=== PATIENT | female | born 2000 | race Caucasian/White ===

== ENCOUNTER 2018-04-21 23:50 | Emergency (ER) | payer OTHER ==
[2018-04-22] MEDS ORDERED: Acetaminophen TAB* 325 MG PO ONE (01:24)
[2018-04-22] MEDS ORDERED: Ketorolac INJ* 30 MG/ML 1 ML VIAL IV ONE (01:24)
[2018-04-22] MEDS ORDERED: NS 0.9% 1000 ML*IV.FLUID IV ONE (01:24)
--- NOTE | 2018-04-22 01:42 | ED ---
Influenza-Like Illness - HPI Summary HPI Summary: This is scribe Haim Garber documenting for attending Dr. Leroy Meadows MD. This patient is a 17 year old F presenting to [facility] accompanied by a female with a chief complaint of pain all over body since this morning at 08:00. The patient rates the pain 8/10 in severity. Patient reports fever and fatigue. Patient denies vomiting or diarrhea. Pt has not gotten the flu shot this year. Pts maximum temperature was 100.6F. PMHX Sinusitis, fibromyalgia, chronic fatigue, chronic LANDRUM. I, Dr. Meadows, personally performed the services described in this documentation as scribed in my presence and it is both accurate and complete. - History of Current Complaint Chief Complaint: EDFluSymptoms Time Seen by Provider: 04/22/18 01:17 Hx Obtained From: Patient Onset/Duration: Sudden Onset, Lasting Days - 1 Severity: Moderate Associated Signs & Symptoms: Fever, T Max - 100.6, Myalgia - Allergy/Home Medications Allergies/Adverse Reactions: Allergies Allergy/AdvReac Type Severity Reaction Status Date / Time amoxicillin Allergy Rash And Verified 04/22/18 00:05 Itching Cephalosporins Allergy Rash And Verified 04/22/18 00:05 Itching sulfa drugs Allergy Rash And Uncoded 04/22/18 00:05 Itching PMH/Surg Hx/FS Hx/Imm Hx Musculoskeletal History: Reports: Hx Fibromyalgia, Other Musculoskeletal History - chronic fatigue Neurological History: Reports: Hx Headaches Infectious Disease History: No Infectious Disease History: Denies: Traveled Outside the [place] in Last 30 Days - Family History Known Family History: Positive: Other - fibromyalgia Review of Systems Positive: Fever, Fatigue Positive: Abdominal Pain. Negative: Vomiting, Diarrhea Positive: Myalgia Positive: Weakness All Other Systems Reviewed And Are Negative: Yes Physical Exam - Summary Physical Exam Summary: GENERAL: Patient is a well-developed and nourished female who is lying comfortable in the stretcher. Patient is not in any acute respiratory distress. HEAD AND FACE: No signs of trauma. No ecchymosis, hematomas or skull depressions. No sinus tenderness. EYES: PERRLA, EOMI x 2, No injected conjunctiva, no nystagmus. EARS: Hearing grossly intact. Ear canals and tympanic membranes are within normal limits. MOUTH: Oropharynx within normal limits. NECK: Supple, trachea is midline, no adenopathy, no JVD, no carotid bruit, no c- spine tenderness, neck with full ROM. CHEST: Symmetric, no tenderness at palpation LUNGS: Clear to auscultation bilaterally. No wheezing or crackles. CVS: Regular rate and rhythm, S1 and S2 present, no murmurs or gallops appreciated. ABDOMEN: Soft, non-tender. No signs of distention. No rebound no guarding, and no masses palpated. Bowel sounds are normal. EXTREMITIES: FROM in all major joints, no edema, no cyanosis or clubbing. NEURO: Alert and oriented x 3. No acute neurological deficits. Speech is normal and follows commands. SKIN: Dry and warm Triage Information Reviewed: Yes Vital Signs On Initial Exam: Initial Vitals Temp Pulse Resp BP Pulse Ox 99.6 F 125 16 111/79 98 04/21/18 23:55 04/21/18 23:55 04/21/18 23:55 04/21/18 23:55 04/21/18 23:55 Vital Signs Reviewed: Yes Diagnostics - Vital Signs Vital Signs Temp Pulse Resp BP Pulse Ox 04/21/18 23:55 99.6 F 125 16 111/79 98 - Laboratory Result Diagrams: 04/22/18 01:29 04/22/18 01:29 Lab Statement: Any lab studies that have been ordered have been reviewed, and results considered in the medical decision making process. - Radiology CXR' Radiology Interpretation Completed By: ED Physician - No acute disease, pending official report Flu Symptom Course/Dx - Course Course Of Treatment: This patient is a 17 year old F presenting to [facility] accompanied by a female with a chief complaint of pain all over body since this morning at 08:00. The patient rates the pain 8/10 in severity. Patient reports fever and fatigue. Patient denies vomiting or diarrhea. Pt has not gotten the flu shot this year. Pts maximum temperature was 100.6F. PMHX Sinusitis, fibromyalgia, chronic fatigue, chronic LANDRUM. CXR reveals, per ED physician, no acute disease. Pending official report. In the ED course the patient was given Acetaminophen and IV fluids. Pt will be discharged with a diagnosis of viral syndrome and follow up with PCP. Patient is agreeable with this plan. - Diagnoses Provider Diagnoses: Viral syndrome Discharge - Sign-Out/Discharge Documenting (check all that apply): Patient Departure - discharge - Discharge Plan Condition: Stable Disposition: HOME Patient Education Materials: Viral Syndrome (ED) Forms: *School Release Referrals: [facility] [Outside] - 2 Days Additional Instructions: RETURN TO THE EMERGENCY DEPARTMENT FOR CHANGING OR WORSENING SYMPTOMS. FOLLOW UP WITH PCP IN 1-2 DAYS. - Attestation Statements Document Initiated by Scribe: Yes Documenting Scribe: Haim Garber Provider For Whom Scribe is Documenting (Include Credential): Leroy Meadows MD Scribe Attestation: IHaim, scribed for Leroy Meadows MD on 04/22/18 at 0307.
[2018-04-22 01:47] LABS: ABS Basophils 0 10^3/ul (0-0.2); ABS Eosinophils 0 10^3/ul (0-0.6); ABS Lymphocytes 0.4 10^3/ul (1.0-4.8); ABS Monocytes 0.8 10^3/ul (0-0.8); ABS Neutrophils 4.9 10^3/ul (1.5-7.7); ABS Nucleated RBC 0 10^3/ul; Eosinophil % 0 % (0-6); Hematocrit 39 % (35-47); Hemoglobin 13.5 g/dl (12.0-16.0); Lymphocyte % 5.8 % (25-47); Mean Corpuscular HGB Conc 34 g/dl (31-36); Mean Corpuscular Hemoglobin 31 pg (27-31); Mean Corpuscular Volume 89 fL (80-97); Mean Platelet Volume 7.6 um3 (7.4-10.4); Nucleated Red Blood Cells % 0; Platelet Count 226 10^3/ul (150-450); Red Cell Distribution Width 13 % (10.5-15); White Blood Count 6.1 10^3/ul (3.5-10.8)
[2018-04-22 02:05] LABS: EGFR Non-African American 95.1 (>60)
[2018-04-22 03:01] LABS: Urine Appearance Clear; Urine Blood 1+ (Negative); Urine Color Yellow; Urine Ketones Negative (Negative); Urine Protein Negative (Negative); Urine Specific Gravity 1.009 (1.010-1.030); Urine Urobilinogen Negative (Negative)
[2018-04-22 03:12] LABS: Urine Red Blood Cell Trace(0-2/hpf) (Absent); Urine White Blood Cell Absent (Absent)
[2018-04-22] MEDS ORDERED: Acetaminop/Codeine 30 MG TAB* 1 TAB (300 MG/30 MG) PO ONE (03:20)
[2018-04-22 03:56] VITALS: BP 114/74
--- NOTE | 2018-04-22 07:43 | RAD ---
Indication: Cough, myalgias, fever. Comparison: No relevant prior exams available on the [facility] for comparison. Technique: Upright AP 0225 hours Report: Very mild bilateral patchy alveolar and interstitial opacities. Clear pleural spaces. Negative for pneumothorax. The heart, pulmonary vasculature, and mediastinal contours are unremarkable. Unremarkable osseous structures and soft tissue contours. IMPRESSION: #. Consider potential bronchopneumonia given the clinical context. R2
== END 2018-04-22 04:11 | disposition home or self-care (01) ==
LOC: ED 23:50
DX: B34.9 Viral infection, unspecified (principal); R50.9 Fever, unspecified; R53.83 Other fatigue; R53.1 Weakness; R10.9 Unspecified abdominal pain
CPT/HCPCS: 36415; 71045; 80053; 81003; 81015; 83605; 84702; 85025; 86140; 86308; 87040; 87651; 96361; 96374; 99283; A9270-GY; J1885